=== PATIENT | female | born 1940 | race Caucasian/White ===

== ENCOUNTER 2016-12-12 23:33 | Emergency (ER) | payer MEDICARE, BC ==
[2016-12-13] MEDS ORDERED: oxyCODONE HCL/ACETAMINOPHEN 1 TAB TABLET PO ONE (00:17)
[2016-12-13] MEDS ORDERED: oxyCODONE HCL/ACETAMINOPHEN 1 TAB TABLET ONE (00:24)
--- OUTSIDE RECORDS SUMMARY | 2016-12-13 00:27 | XMS REPORT | Continuity of Care Document ---
:1940 Author Organization [facility] ([facility]) Address [address] [place] [address] Phone [phone] Care Team Providers Name Role Phone Logan Cavanaugh Primary Care Provider [phone] Source Comments This disclosure is being made pursuant to the Care Everywhere program, applicable federal and state laws, and may not contain all informaitonavailable regarding this patient.[facility] ([facility]) Active Allergies and Adverse Reactions Allergen Noted Date Severity Reactions Comments Ciprofloxacin 05/07/2012 Arthralgia Morphine 05/21/2016 OTHER Current Medications Prescription Sig. Disp. Refills Start Date End Date Status aspirin 81 mg EC tablet Take 81 mg by mouth Active daily. LORazepam 0.5 mg tablet Take 0.5 mg by Active mouth at bedtime. multivitamin tablet Take 1 Tab by mouth Active daily. levothyroxine 125 mcg Take 125 mcg by Active tablet mouth every morning before breakfast. Ibuprofen 200 mg cap Take 2 Caps by Active mouth 2 times daily as needed. atorvastatin 80 mg tablet take 1 tablet by 05/07/2014 Active oral route every day clopidogrel 75 mg tablet take 1 tablet by 06/16/2014 Active oral route every day metoPROLol tartrate 25 mg TAKE ONE-HALF 07/05/2014 Active tablet TABLET BY MOUTH TWICE A DAY nitroglycerin 0.4 mg SL One tab under 05/07/2014 Active tablet tongue for chest pain; may repeat every 5 min up to total of 3 tabs alendronate 70 mg tablet 04/05/2016 Active atorvastatin 40 mg tablet 04/16/2016 Active acetaminophen 325 mg Take 325 mg by Active tablet mouth every 4 hours as needed. 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/21 without angina pectoris Mixed hyperlipidemia 05/21/2016 Osteoporosis 05/21/2016 Osteoarthritis 05/21/2016 Cataract 05/21/2016 Hypothyroidism 02/27/2012 Numbness and tingling in hands 11/12/2008 Most Recent Encounters Date Type Specialty Providers Description 11/28/2016 Office Visit Neurology Francois Sifuentes MD Chief Comp: Patient Reported Reason For Visit Social History Tobacco Use Types Packs/Day Years Used Date Former Smoker 20 Smokeless Tobacco: Never Used Quit: 07/01/1995 Tobacco Cessation:Counseling Given: Yes Comments: Alcohol Use Drinks/Week oz/Week Comments Yes 0 Glasses of wine 0.0 Last Filed Vital Signs Vital Sign Reading Time Taken Blood Pressure 140/69 05/21/2016 12:32 PM [employer]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 Pulse 51 05/21/2016 12:32 PM BEL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 Temperature 35.5 C (95.9 F) 05/07/2012 10:06 AM BEL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 Respiratory Rate - - Height 1.651 m (5' 5") 05/21/2016 12:32 PM BEL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 Weight 71.1 kg (156 lb 12 oz) 05/21/2016 12:32 PM BEL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 Body Mass Index 26.08 05/21/2016 12:32 PM BEL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 Oxygen Saturation 98% 05/21/2016 12:32 PM BEL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 Plan of Care Date Type Specialty Providers Description 12/26/2016 Appointment Neurology Francois Sifuentes MD Chief Comp: Patient [address] [place] [address] [phone] (Fax) Health Maintenance Due Date Last Done Comments Hepatitis B Vaccine (1 of 3 - Primary Series) 1940 Tdap Vaccine 1951 Lipid Disorder Screening 1958 Td Vaccine 1958 Mammogram 1980 Colonoscopy 1990 Zoster Vaccine 2000 Osteoporosis Screening (DXA Bone Density) 2005 Pneumococcal Vaccine (1 of 2 - PCV13) 2005 Influenza Vaccine: Seasonal (Season Ended) 2017 Results from Last 3 Months Not on file
--- NOTE | 2016-12-13 00:28 | ERNOTE ---
Upper Extremity HPI - General Extremities Pain Location: thumb: right Time Seen by Provider: 12/13/16 00:01 Source: patient Exam Limitations: no limitations - Immun/Allergies/Home Medications Immunizations: IMMUNIZATION HX Immunizations Up to Date No Allergies/Adverse Reactions: Allergies Allergy/AdvReac Type Severity Reaction Status Date / Time ciprofloxacin Allergy Unverified 05/22/16 12:41 Morpholine Analogues Allergy Verified 03/06/16 11:47 Home Medications: HOME MEDICATIONS Metoprolol Tartrate [Lopressor] 12.5 mg PO BID 09/29/14 [Last Taken 09/29/14] Aspirin [Aspirin EC] 81 mg PO DAILY 03/06/16 [Last Taken Unknown] Calcium Carb, Citrate/Vit D3 [Calcium + D3 ER Tablet] 1 each PO DAILY 03/06/16 [ Last Taken Unknown] Levothyroxine Sodium [Synthroid] 125 mcg PO DAILY 03/06/16 [Last Taken Unknown] Tylenol 05/22/16 [Last Taken Unknown] Ubidecarenone [Coq10] 50 mg PO DAILY 12/12/16 [Last Taken Unknown] - History of Present Illness Narrative: Patient was doing yard work and tripped over a light and fell forward bracing herself with her right hand. She denies any head injury, was able to get up herself, and only complaints of pain in her right thumb, no other injuries. She kept using it for most of the day but at the end of the day has a lot of swelling, throbbing pain. Date (Duration): 12/12/16 Occurred: this morning Location of Incident: home Method of Injury: Reports: fell Reason for Fall: Reports: tripped Loss of Consciousness: Reports: no loss of consciousness Modifying Factors - (Worsens): Reports: movement Associated Symptoms: Reports: numbness distally - finger tip. Denies: tingling , weakness Other Injuries: Reports: none Prior Treament: Denies: recently seen, similar symptoms before Review of Systems - Review of Systems Constitutional: Absent: recent illness, fever EYE: Absent: vision changes Respiratory: Absent: shortness of breath Cardiology: Absent: chest pain Gastrointestinal/Abdominal: Absent: nausea, abdominal pain Genitourinary: Present: no symptoms reported Musculoskeletal: Present: See HPI. Absent: back pain, neck pain Neurological: Present: See HPI. Absent: headache, weakness - Patient's Past Medical History Patient History - Medical: Hypothyroidism Patient History - Cardiac/Respiratory: Coronary Heart Disease, Hypertension, Other Patient History - Cancer: No Hx of Cancer Patient History - Surgical Procedures: Cardiac stent, Other, Orthopedic Patient History - Other: None LMP (females 10-50): Menopausal - Social History Living Situations: spouse Abuse History: No History of abuse Psych History: No pertinent hx Smoking Status: Never smoker Have you smoked in the past 12 months: No Do you dip or chew tobacco: No Alcohol Use: rarely Drug Use: none - Immunizations Immunizations Up to Date: No Physical Exam - Physical Exam General Appearance: Present: wd/wn, alert, no apparent distress Eye Exam: Normal inspection: bilateral, PERRL: bilateral Ears, Nose, Throat: Present: other - no obvious injury, no tenderness Neck: Present: normal inspection, nontender, supple Respiratory: Present: no respiratory distress, normal breath sounds, no accessory muscle use, chest nontender, lungs clear Cardiovascular/Chest: Present: regular rate, rhythm, no murmur Gastrointestinal/Abdominal: Present: nontender Back Exam: Present: normal inspection, no CVA tenderness, no vertebral tenderness Extremity Exam: Present: normal except - - left thumb swollen over distal and proximal phalanx, ecchymosis, no nailbed injury or bleeding, no open areas, decreased sensation fingertip Neurological Exam: Present: alert, oriented, normal mood/affect, no motor/ sensory deficits - except tip of right thumb Skin Exam: Present: normal color, warm/dry ED Progress - Vital Signs Patient's Vital Signs:: I have reviewed the patient's vital signs. Vital Signs: Vital Signs 12/12/16 23:35 Temperature 36.1 C L Pulse Rate 58 L Respiratory 16 Rate Blood Pressure 176/96 O2 Sat by Pulse 98 Oximetry - X-Ray X-Ray #1 X-Ray: hand - right thumb distal phalanx non displaced fracture at base Interpretation: Interp. by me - Progress/Reassessment Chief Complaint: Hand Injury/Pain Departure Clinical Impression: Fracture, finger, distal phalanx Qualifiers: Encounter type: initial encounter Finger: thumb Fracture type: closed Fracture alignment: nondisplaced Laterality: right Qualified Code(s): S62.524A - Nondisplaced fracture of distal phalanx of right thumb, initial encounter for closed fracture - Departure Disposition: Home self-care Condition: Good Instructions: Finger Fracture, [id number] Additional Instructions: keep the hand elevated! call the orthopedic office in the morning for follow up Referrals: Azeem Alexander MD [Staff Physician] -
[2016-12-13 00:32] VITALS: BP 163/82
== END 2016-12-13 00:30 | disposition home or self-care (01) ==
LOC: ER 23:33
DX: S62.524A Nondisplaced fracture of distal phalanx of right thumb, initial encounter for closed fracture (principal); W18.09XA Striking against other object with subsequent fall, initial encounter; Y92.096 Garden or yard of other non-institutional residence as the place of occurrence of the external cause